=== PATIENT | female | born 1980 | race Native Hawaiian/Other Pacific Islander ===

== ENCOUNTER 2021-08-14 16:49 | Emergency (ER) | payer SELFPAY ==
[2021-08-14 17:36] VITALS: BP 226/135
--- NOTE | 2021-08-14 17:45 | Emergency Department Report ---
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 She states that she is not , and has not delivered her given in the past 6 weeks. She denies a history of chronic medical conditions. She is referred to the emergency room by local outpatient clinic for asymptomatic hypertension. The patient reports that she was last seen by a primary care doctor in 2019, and then skipped seeing a physician in 2019, secondary to the COVID-19 pandemic. She recently had outpatient laboratory studies, which she states were unremarkable (patient also has copies of her laboratory studies, which are indeed unremarkable for acutely emergent findings), and followed up today for an outpatient visit for routine checkup, and was found to have asymptomatic hypertension, and referred to the emergency room for unclear reasons. The patient states that to the best of her recollection, she does not have any chronic medical conditions that she takes medicines for. She denies physical pain and all physical complaints. To me, she specifically denies headache, neck pain, chest pain, abdominal pain, shortness of breath, loss of vision. Associated Symptoms: denies other symptoms - Related Data Previous Rx's Medication Instructions Recorded Last Taken Type Amlodipine Besylate [Norvasc] 10 mg PO QDAY #60 tablet 08/14/21 Unknown Rx Allergies Allergy/AdvReac Type Severity Reaction Status Date / Time No Known Allergies Allergy Verified 08/14/21 17:36 ED Review of Systems ROS: Stated complaint: HIGH BLOOD PRESSURE Other details as noted in HPI Comment: All other systems reviewed and negative ED Past Medical Hx - Medications Home Medications: Home Medications Medication Instructions Recorded Confirmed Last Taken Type Amlodipine Besylate [Norvasc] 10 mg PO QDAY #60 tablet 08/14/21 Unknown Rx ED Physical Exam - General Limitations: Language Barrier General appearance: alert, in no apparent distress, obese - Head Head exam: Present: atraumatic, normocephalic - Eye Eye exam: Present: normal appearance, PERRL, EOMI, other (Visual acuity intact to finger counting, color perception, reading at a close distance). Absent: nystagmus - ENT ENT exam: Present: normal exam, normal orophraynx, mucous membranes moist, normal external ear exam - Neck Neck exam: Present: normal inspection, full ROM. Absent: tenderness, meningismus - Respiratory Respiratory exam: Present: normal lung sounds bilaterally. Absent: respiratory distress, wheezes, rales, rhonchi, stridor, decreased breath sounds - Cardiovascular Cardiovascular Exam: Present: regular rate, normal rhythm, normal heart sounds. Absent: bradycardia, tachycardia, irregular rhythm, systolic murmur, diastolic murmur, rubs, gallop - GI/Abdominal GI/Abdominal exam: Present: soft. Absent: distended, tenderness, guarding, rebound, rigid, pulsatile mass - Extremities Exam Extremities exam: Present: normal inspection, full ROM, other (2+ pulses noted in the bilateral upper and lower extremities. There is no palpable cord. negative Homans sign. Muscular compartments are soft. The pelvis is stable.). Absent: pedal edema, calf tenderness - Back Exam Back exam: Present: normal inspection, full ROM. Absent: tenderness, CVA tenderness (R), CVA tenderness (L), paraspinal tenderness, vertebral tenderness - Neurological Exam Neurological exam: Present: alert, oriented X3, normal gait, other (There is no facial droop. The tongue is midline. Extraocular movements are intact bilaterally. There is 5 out of 5 strength in bilateral upper and lower extremities. Sensation is intact to light touch bilateral upper and lower extremities. There is no past-pointing. There is no pronator drift.). Absent: motor sensory deficit - Psychiatric Psychiatric exam: Present: normal affect, normal mood - Skin Skin exam: Present: warm, dry, intact, normal color. Absent: rash ED Course Vital Signs 08/14/21 17:33 Temperature 98.9 F Pulse Rate 100 H Respiratory 16 Rate Blood Pressure 226/135 [Left] O2 Sat by Pulse 100 Oximetry ED Medical Decision Making - Lab Data Vital Signs 08/14/21 17:33 Temperature 98.9 F Pulse Rate 100 H Respiratory 16 Rate Blood Pressure 226/135 [Left] O2 Sat by Pulse 100 Oximetry - Medical Decision Making Differential diagnosis, including but not limited to: Hypertension, body mass index of 34.9, encounter for medical screening examination Assessment and plan: 40-year-old female, who was afebrile, with reassuring vital signs with exception of hypertension of unknown chronicity, tachycardia resolved on my physical exam, patient had laboratory studies performed last week, which demonstrated a white count of 7.4, hemoglobin/hematocrit 13/40 respectively, platelet count of 273, comprehensive metabolic panel which was unremarkable, TSH within normal limits, who further reports that she is not , and has not delivered her given within the past 6 weeks, who was referred to the emergency room for unclear reasons, for asymptomatic hypertension/elevated blood pressure. Please reference the [employer] clinical policy on asymptomatic hypertension. Recent laboratory studies show potassium of 4.1, sodium of 141, chloride of 103, carbon dioxide of 22, calcium of 9.2, total protein of 7.2, albumin of 4.8, AST of 21, ALT of 23, GFR within normal limits, creatinine 0.70, and blood urea nitrogen of 13. Patient will be started on Norvasc, and follow-up as an outpatient for her as ymptomatic hypertension. She can also follow-up for her body mass index of 34.9 as an outpatient. Discussed this with a skein winding operator. Patient endorsed understanding. All questions answered. Critical care attestation.: If time is entered above; I have spent that time in minutes in the direct care of this critically ill patient, excluding procedure time. ED Disposition Clinical Impression: Elevated blood pressure reading, Encounter for medical screening examination, Body mass index 34.0-34.9, adult Disposition: 01 HOME / SELF CARE / HOMELESS Is pt being admited?: No Does the pt Need Aspirin: No Condition: Good Instructions: Obesity, Adult, Hypertension, Adult Additional Instructions: Please take the blood pressure medication as directed. Please follow-up with a primary care doctor in 3 to 4 weeks for asymptomatic hypertension/elevated blood pressure. Also recommend that the patient diet, exercise, and lose weight. Avoid consumption of simple carbohydrates. Avoid consumption of heavy and spicy foods. Long-term complications of body mass index of 34.9 and elevated blood pressure include stroke, heart attack, disability, paralysis, and loss of quality of life. Dr. Wendy Garcia is a local primary care doctor. Please return to the emergency room right away with new pain, worsened pain, migration of pain, projectile vomiting, change in mental status, confusion, inability to tolerate liquid feeds, new, worsened or different symptoms not present on the initial emergency room evaluation [place] el medicamento para la presin arterial segn las indicaciones. [place] un seguimiento con un mdico de atencin primaria en 3 a 4 semanas para la hipertensin asintomtica / presin arterial elevada. Tambin se recomienda que el paciente augusta dieta, augusta ejercicio y baje de peso. Evite el consumo de carbohidratos simples. Evite el consumo de alimentos pesados ??y picantes. Las complicaciones a ynes plazo del ndice de masa corporal de 34,9 y la pre sin arterial elevada incluyen accidente cerebrovascular, ataque cardaco, discapacidad, parlisis y prdida de la calidad de alina. El Dr. Wendy Garcia es un mdico de atencin primaria local. Regrese a la enoch de emergencias de inmediato con dolor nuevo, empeoramiento del dolor, migracin del dolor, vmitos en proyectil, cambio en el estado mental, confusin, incapacidad para tolerar alimentos lquidos, sntomas nuevos, empeorados o diferentes que no estn presentes en la evaluacin inicial de la enoch de emergencias Prescriptions: Amlodipine Besylate [Norvasc] 10 mg PO QDAY #60 tablet Referrals: JODI GARCIA MD [Staff Physician] - 3-5 Days Forms: Work/School Release Form(ED) Print Language: ICELANDIC
[2021-08-14] MEDS ORDERED: amLODIPine 5 MG TAB PO ONE (17:58)
== END 2021-08-14 19:03 | disposition home or self-care (01) ==
LOC: ED 16:49
DX: R03.0 Elevated blood-pressure reading, without diagnosis of hypertension (principal); Z68.34 Body mass index [BMI] 34.0-34.9, adult
CPT/HCPCS: 99282